=== PATIENT | female | born 1980 | race Caucasian/White ===

== ENCOUNTER 2017-04-11 13:28 | Emergency (ER) | payer MEDICAID ==
[~2017-04-11] VITALS: Ht 157.5 cm; Wt 170.9 kg
[2017-04-11] MEDS ORDERED: ONDANSETRON 2MG/ML, 2ML IVPush ONE (14:30)
[2017-04-11] MEDS ORDERED: SODIUM CHLORIDE 0.9% 1,000ML IVBOLUS ONE (14:30)
[2017-04-11] MEDS ORDERED: SODIUM CHLORIDE FLUSH 10ML SYR IVF ONE (14:30)
[2017-04-11] MEDS ORDERED: MAALOX/HYOSCYAMINE/LIDOCAINE 45 ML BOTTLE PO ONE (14:30)
[2017-04-11] MEDS ORDERED: FAMOTIDINE 20 MG/2 ML IVP ONE (14:30)
[2017-04-11 14:45] VITALS: BP 139/87
[2017-04-11 14:50] LABS: ASPARTATE AMINO TRANSFERASE 12 U/L (15-37); BLOOD UREA NITROGEN 18 mg/dL (7-18)
[2017-04-11] MEDS ORDERED: MAALOX/HYOSCYAMINE/LIDOCAINE 45 ML BOTTLE ONE (15:25)
[2017-04-11] MEDS ORDERED: FAMOTIDINE 20 MG/2 ML ONE (15:26)
[2017-04-11] MEDS ORDERED: ONDANSETRON 2MG/ML, 2ML ONE (15:26)
== END 2017-04-11 15:59 | disposition home or self-care (01) ==
LOC: ED 15:49
DX: K80.20 Calculus of gallbladder without cholecystitis without obstruction (principal); E11.9 Type 2 diabetes mellitus without complications
CPT/HCPCS: 36415; 76700; 80053; 83690; 84703; 85025; 99285

== ENCOUNTER 2017-05-08 12:19 | Emergency (ER) | payer MEDICAID ==
[~2017-05-08] VITALS: Ht 157.5 cm; Wt 170.0 kg
[2017-05-08] MEDS ORDERED: SODIUM CHLORIDE FLUSH 10ML SYR IVF ONE (13:00)
[2017-05-08] MEDS ORDERED: methylPREDNISolone SOD SUCC 125 MG/2 ML IVP ONE (13:00)
[2017-05-08] MEDS ORDERED: ALBUTEROL SULFATE 2.5 MG/3 ML ONE (13:15)
[2017-05-08 13:52] LABS: BLOOD UREA NITROGEN 15 mg/dL (7-18)
[2017-05-08] MEDS ORDERED: methylPREDNISolone SOD SUCC 125 MG/2 ML ONE (13:54)
[2017-05-08 13:58] LABS: IS PT STATUS REG ER OR PRE ER? YES
[2017-05-08 16:14] VITALS: BP 140/77
== END 2017-05-08 18:14 | disposition home or self-care (01) ==
LOC: ED 13:46
DX: J20.9 Acute bronchitis, unspecified (principal); E11.65 Type 2 diabetes mellitus with hyperglycemia; I10 Essential (primary) hypertension; Z90.49 Acquired absence of other specified parts of digestive tract; Z87.891 Personal history of nicotine dependence
CPT/HCPCS: 36415; 71010; 80048; 82040; 83880; 84484; 85025; 93005; 94640; 96374; 99285; J2930